=== PATIENT | female | born 1975 | race Hispanic/Latino ===

== ENCOUNTER 2016-11-23 07:52 | Inpatient (IN) | payer BC, OTHER ==
[2016-11-23] MEDS ORDERED: Lactated Ringer's 1,000 ML IV ONE (08:00)
[2016-11-23 08:09] VITALS: BMI 25.7
[2016-11-23] MEDS ORDERED: Oxycodone/Acetaminophen 5/325 mg Tab PO PRN ×2 (08:51)
[2016-11-23] MEDS ORDERED: Oxytocin 30 units/LR 500ML 30 U/500 ML BAG IV SCH (08:51)
--- NOTE | 2016-11-23 09:00 | OBHP ---
Datetime: 11/23/2016 08:55 IP Admit Plan: Admit to unit Admit Comment, IP Provider: The patient is a 41-year-old 3 para 1 estimated gestational age 37 weeks estimated due date 12/15/2016. Patient presents still a [facility] stat us post normal spontaneous delivery at home. Patient states she started having uterine cramps and del ivered the at 7:28 AM. Patient called EMS and was brought to the hospital patient states place nta delivered while en route to the hospital. Patient reports some bleeding and some pelvic discomfor t. Past medical history hypothyroidism Past surgical history wisdom teeth and D_C Medication history Synthroid No known drug allergies Social history denies alcohol tobacco use Obstetrical history history of ectopic treated with methotrexate Normal spontaneous vaginal delivery Review of systems patient reports chills denies chest pain shortness of breath nausea vomiting dys uria heat or cold intolerance easy bruisability musculoskeletal turning neurological complaints Vital signs stable afebrile Physical exam see notes Status post normal spontaneous vaginal delivery IV fluid hydration Repair of vaginal laceration first-degree and periclitoral tear C procedure and delivery record Analgesia as needed Observation Pelvic Type - PN: Adequate Extremities - PN: Normal Abdomen - PN: Normal Back - PN: Normal Breast - PN: Not Done Lungs - PN: Normal Heart - PN: Normal Thyroid - PN: Normal Neurologic - PN: Normal HEENT - PN: Normal General - PN: Normal Comments, ACOG Physical Exam: Patient noted to have a first-degree vaginal laceration and a periclit oral tear Gestation - Est Wks by US: 37.0 Vital Signs Provider: Reviewed IP Chief Complaint: Other Genitourinary Exam: Normal DTRs - PN: Normal
--- NOTE | 2016-11-23 09:03 | OBDS ---
VAGINAL DELIVERY Episiotomy: None Laceration Extension: First Degree Laceration Type: Vaginal Other Laceration: periclitoral laceration Laceration Repair: Yes Laceration Repair Note: Patient had precipitous delivery at home was brought in by EMS on arrival an d sent and placenta delivered. The patient was examined she was noted to have a first-degree fashion a laceration, lidocaine was infused and the laceration was repaired with 2-0 rapide The patient had a periclitoral laceration was running parallel to the clitoris it was noted to be actively bleeding. The area was prepped with Bet adine infused with lidocaine and repaired with a 2-0 rapide in a running fashion. The patient tolerat ed the procedure well
[2016-11-23 09:37] LABS: BASO % 0.3 % (0.0-2.0); EOS % 0.2 % (0.0-4.0); HEMATOCRIT 35.9 % (34.0-47.0); LYMPH # 1.6 K/uL (1.0-4.3); LYMPH % 10.2 % (20.0-40.0); MEAN CELL VOLUME 90.6 fl (81.0-99.0); MEAN CORPUSCULAR HEMOGLOBIN 30.2 pg (27.0-31.0); MEAN CORPUSCULAR HGB CONC 33.3 g/dL (33.0-37.0); MEAN PLATELET VOLUME 9.4 fl (7.2-11.7); MONO # 0.5 K/uL (0.0-0.8); MONO % 3.1 % (0.0-10.0); NEUT # 13.2 K/uL (1.8-7.0); NEUT % 86.2 % (50.0-75.0); RED CELL DISTRIBUTION WIDTH 13.4 % (11.5-14.5); WHITE BLOOD COUNT 15.3 K/uL (4.8-10.8)
--- NOTE | 2016-11-23 09:45 | OBADHP ---
Datetime: 11/23/2016 08:55 Admit Comment, IP Provider: The patient is a 41-year-old 3 para 1 estimated gestational age 37 weeks estimated due date 12/15/2016. Patient presents still a [facility] stat us post normal spontaneous delivery at home. Patient states she started having uterine cramps and del ivered the at 7:28 AM. Patient called EMS and was brought to the hospital patient states place nta delivered while en route to the hospital. Patient reports some bleeding and some pelvic discomfor t. Past medical history hypothyroidism Past surgical history wisdom teeth and D_C Medication history Synthroid No known drug allergies Social history denies alcohol tobacco use Obstetrical history history of ectopic treated with methotrexate Normal spontaneous vaginal delivery Review of systems patient reports chills denies chest pain shortness of breath nausea vomiting dys uria heat or cold intolerance easy bruisability musculoskeletal turning neurological complaints Vital signs stable afebrile Physical exam see notes Status post normal spontaneous vaginal delivery IV fluid hydration Repair of vaginal laceration first-degree and periclitoral tear C procedure and delivery record Analgesia as needed Observation Pelvic Type - PN: Adequate Extremities - PN: Normal Abdomen - PN: Normal Back - PN: Normal Breast - PN: Not Done Lungs - PN: Normal Heart - PN: Normal Thyroid - PN: Normal Neurologic - PN: Normal HEENT - PN: Normal General - PN: Normal Comments, ACOG Physical Exam: Patient noted to have a first-degree vaginal laceration and a periclit oral tear Gestation - Est Wks by US: 37.0 Vital Signs Provider: Reviewed IP Chief Complaint: Other Genitourinary Exam: Normal DTRs - PN: Normal IP Admit Plan: Admit to unit
[2016-11-23] MEDS: Benzocaine/Menthol SPRAY TOP PRN (13:14)
[2016-11-23] MEDS ORDERED: Hydrocortisone-Pramoxine 1%-1% Foam(10 gm) TOP PRN (13:40)
[2016-11-24 07:21] LABS: HEMATOCRIT 32.9 % (34.0-47.0); MEAN CELL VOLUME 89.5 fl (81.0-99.0); MEAN CORPUSCULAR HEMOGLOBIN 30.7 pg (27.0-31.0); MEAN CORPUSCULAR HGB CONC 34.3 g/dL (33.0-37.0); RED CELL DISTRIBUTION WIDTH 13.2 % (11.5-14.5); WHITE BLOOD COUNT 10.5 K/uL (4.8-10.8)
--- NOTE | 2016-11-24 12:53 | OBPPN ---
Datetime: 11/24/2016 12:36 PP Pain Prov: Within normal limits PP Nausea Prov: Denies PP Flatus Prov: Yes PP Breasts Prov: Not Done PP Heart Prov: Normal PP Lungs Prov: Normal PP Abdomen/Uterus Prov: Normal PP Lochia Prov: Not Done PP Vulva/Perineum Prov: Not Done PP CVA Tenderness Prov: Normal PP Extremities Prov: Normal PP Impression Prov: Normal progression PP Plan Prov: Continue present management PP Progress Note Prov: Patient doing well no complaints pain well-controlled reports minimal lochia and breast-feeding without difficulty Vital signs stable afebrile Uterus firm below the umbilicus Extremities no Homans day #1 Analgesia as needed, encourage breast-feeding, regular diet, anticipate discharge in a.m. Vital Signs Provider PP: Reviewed
[2016-11-24] MEDS: Benzocaine/Menthol SPRAY TOP PRN (16:01)
--- NOTE | 2016-11-25 08:56 | OBDCSUM ---
Datetime: 11/25/2016 08:55 Discharged to, Provider: Home Follow up at, Provider: Luana Pearson Instr Activity: Normal activity Disch Instr Diet: Regular Discharge Instructions, Provider: Routine instructions given Discharge Diagnosis, Provider: Term Delivered Follow up in weeks, Provider: 6 week Disch Referrals: None Contraception discussed, Prov: Yes Disch Activity Restrictions: No sexual activity; Nothing in vagina - Doyle, tampons, douche Discharge Comment, Provider: Patient doing well Contraception after Delivery: Undecided
--- NOTE | 2016-11-25 09:21 | OBPPN ---
Datetime: 11/25/2016 08:55 PP Pain Prov: Within normal limits PP Nausea Prov: Denies PP Flatus Prov: Yes PP Breasts Prov: Not Done PP Heart Prov: Normal PP Lungs Prov: Normal PP Abdomen/Uterus Prov: Normal PP Lochia Prov: Not Done PP Vulva/Perineum Prov: Not Done PP CVA Tenderness Prov: Normal PP Extremities Prov: Normal PP C/S Incision Prov: Normal PP Impression Prov: Normal progression PP Plan Prov: Discharge PP Progress Note Prov: Patient doing well reports minimal lochia pain control margin Vital signs stable afebrile Uterus firm below the umbilicus day #2 Patient cleared for discharge, Motrin as needed, follow-up PMD in 6 weeks Vital Signs Provider PP: Reviewed
[2016-11-25 18:52] VITALS: BP 100/56; PULSE 64; RESP 19; TEMP 97.9; O2SAT 100
== END 2016-11-25 14:44 | disposition home or self-care (01) | DRG 775 ==
LOC: H.EROB2 07:52 → H.L&D 08:09 → H.OB/GYN 16:54
PROVIDERS: ADMIT Specialist; ATTEND Specialist
PROC: 0HQ9XZZ Repair Perineum Skin, External Approach (ICD-10-PCS; principal; 2016-11-23)
DX: Z39.0 Encounter for care and examination of mother immediately after delivery (principal); O70.0 First degree perineal laceration during delivery; E03.9 Hypothyroidism, unspecified; Z37.0 Single live birth

== ENCOUNTER 2017-12-23 11:40 | Emergency (ER) | payer BC, OTHER | END 2017-12-23 13:15 | disposition home or self-care (01) | LOC: H.EDDOWN 11:40 | DX: Z03.818 Encounter for observation for suspected exposure to other biological agents ruled out (principal) ==